=== PATIENT | male | born 1955 | race Caucasian/White ===

== ENCOUNTER 2017-11-30 05:45 | Day surgery (SDC) | payer BC ==
[2017-11-30] MEDS ORDERED: DIPRIVAN 200 MG/20 ML IV ONE (05:46)
[2017-11-30] MEDS ORDERED: Lactated Ringers 1,000 ML IV SCH (06:00)
[2017-11-30 07:40] LABS: ANION GAP 15.8 MEQ/L (5-15); BLOOD UREA NITROGEN 17 mg/dL (9-20); CHLORIDE 102 mmol/L (98-107); Calcium 8.9 mg/dL (8.4-10.2); Carbon Dioxide 25 mmol/L (22-30); Cholesterol 186 mg/dL (50-200); Creatinine 1 0.86 mg/dL (0.66-1.25); Glucose 90 mg/dL (74-106); HDL CHOLESTEROL 50 mg/dL (40-60); Potassium 3.7 mmol/L (3.5-5.1); Risk Ratio 3.7; SGOT/AST 41 U/L (17-59); SODIUM 140 mmol/L (137-145); TRIGLYCERIDE 127 mg/dL (30-150)
[2017-11-30 07:52] LABS: LDL, DIRECT 97 mg/dL (30-100)
[2017-11-30] MEDS ORDERED: Lactated Ringers 1,000 ML IV ONE (08:24)
[2017-11-30 08:58] VITALS: O2SAT 97
[2017-11-30 09:15] VITALS: BP 119/78; PULSE 62
--- NOTE | 2017-11-30 09:49 | OP ---
SURGERY DATE/TIME: 11/30/2017 0757 PREOPERATIVE DIAGNOSIS: Screening exam. POSTOPERATIVE DIAGNOSES: 1) Diverticulosis. 2) Polyps in the ascending and rectosigmoid colon. PROCEDURE: Colonoscopy with polypectomy x2. SURGEON: Dr. Pires. ANESTHESIA: MAC. Medications given by anesthesia department. HISTORY: The patient is a 62 year-old white male patient presenting now for screening colonoscopy. He was appraised of the risks of the procedure including the risk of perforation, phlebitis, untoward reaction to medication, bleeding and missed lesions. The patient verbalized his understanding and desired to have the procedure performed. DESCRIPTION OF PROCEDURE: The patient was given the medications by the anesthesia department. He had continuous pulse oximetry, ECG monitoring, intermittent blood pressure monitoring and tidal CO2 monitoring during the examination. He was placed in the left lateral decubitus position. A digital rectal examination was performed and revealed normal anal sphincter tone, no masses and normal prostate. The flexible Olympus pediatric colonoscope was used to intubate the rectum. A view of the colon was developed sequentially to the cecum. Upon insertion and withdrawal, including a retroflex view in the rectum was noted diverticulosis throughout the colon of moderate sized diverticulum. There was also noted a 0.7 cm size polyp in the ascending colon which was removed using polypectomy snare and retrieved for pathologic evaluation. It was also noted a slightly larger approximately 1 cm polyp in the rectosigmoid area also likewise removed with hot polypectomy snare and retrieved for pathologic evaluation. The scope was removed from the patient who tolerated the procedure well and was sent back to OP recovery in good condition. The prep was noted to be fair to good.
== END 2017-11-30 09:23 | disposition home or self-care (01) ==
LOC: SDC 05:45
PROVIDERS: ATTEND Family Medicine
DX: K63.5 Polyp of colon (principal); K62.1 Rectal polyp; K57.90 Diverticulosis of intestine, part unspecified, without perforation or abscess without bleeding; Z12.11 Encounter for screening for malignant neoplasm of colon; E78.5 Hyperlipidemia, unspecified
CPT/HCPCS: 36415; 80048; 80061; 83721; 84450; 88305; J2704

== ENCOUNTER 2020-12-20 05:55 | Day surgery (SDC) | payer MEDICARE, BC ==
[2020-12-20] MEDS ORDERED: Lactated Ringers 1,000 ML IV SCH (06:30)
[2020-12-20] MEDS ORDERED: DIPRIVAN 200 MG/20 ML IV ONE ×2 (07:27→07:52)
[2020-12-20 08:36] VITALS: PULSE 59; O2SAT 98
[2020-12-20 08:45] VITALS: BP 128/82
--- NOTE | 2020-12-20 11:33 | OP ---
SURGERY DATE: 12/20/2020 SURGERY TIME: 730 PREOPERATIVE DIAGNOSIS: 1. HISTORY OF COLON POLYPS. POSTOPERATIVE DIAGNOSIS: 1. SMALL SIGMOID COLON POLYP. 2. MODERATE TO SEVERE SIGMOID DIVERTICULOSIS. PROCEDURE: 1. Colonoscopy with cold forceps biopsy. SURGEON: Dr. Pires. ANESTHESIA: MAC. Medications given by the Anesthesia Department. BRIEF HISTORY: The patient is a 65 y/o WM patient now presenting for surveillance examination. He had previously had colonoscopy done 3 years ago at which time 3 polyps were removed. The patient was appraised of the risks of the procedure including the risk of perforation, phlebitis, untoward reaction to medication, bleeding, and missed lesions. The patient verbalized his understanding and desired to have the procedure performed. DESCRIPTION OF PROCEDURE: The patient was given the medications by the Anesthesia Department. He had continuous pulse oximetry, ECG monitoring, intermittent BP monitoring, and end tidal CO2 monitoring during the examination. He was placed in the left lateral decubitus position. A digital rectal examination was performed and revealed normal anal sphincter tone, no masses, and a normal prostate. The flexible Olympus pediatric colonoscope was used to intubate the rectum. A view of the colon was developed sequentially to the cecum. Upon insertion and withdrawal, including a retroflex view in the rectum, was noted a small polyp in the sigmoid colon which was biopsied and destroyed one pass of the cold forceps biopsy. There was otherwise noted to be moderate to severe sigmoid diverticulosis. Actually did extend through most of the colon. The scope was removed from the patient who tolerated the procedure well and was sent back to OP recovery in good condition. The prep was noted to be fair to good.
== END 2020-12-20 08:45 | disposition home or self-care (01) ==
LOC: SDC 05:55
PROVIDERS: ATTEND Family Medicine
DX: Z12.11 Encounter for screening for malignant neoplasm of colon (principal); Z86.010 Personal history of colon polyps; K57.30 Diverticulosis of large intestine without perforation or abscess without bleeding; D12.5 Benign neoplasm of sigmoid colon
CPT/HCPCS: 88305; J2704

== ENCOUNTER 2023-11-08 06:05 | Day surgery (SDC) | payer MEDICARE, BC ==
[2023-11-08] MEDS ORDERED: Lactated Ringers 1,000 ML IV ONE (06:15)
[2023-11-08] MEDS: Lactated Ringers 1,000 ML IV SCH (06:20)
[2023-11-08 06:34] VITALS: RESP 18
[2023-11-08] MEDS ORDERED: DIPRIVAN 200 MG/20 ML IV ONE ×2 (07:32→07:53)
[2023-11-08] MEDS ORDERED: Versed 2 MG/2 ML Injection ONE (07:33)
--- NOTE | 2023-11-08 08:36 | OP ---
SURGERY DATE/TIME: 11/08/2023 0733 PREOPERATIVE DIAGNOSES: 1) Screening exam. 2) Personal history of colon polyps. POSTOPERATIVE DIAGNOSIS: Small transverse colon polyp and diverticulitis throughout the colon. PROCEDURE: Colonoscopy with cold forceps biopsy. SURGEON: Dr. Pires. ANESTHESIA: Medications given by anesthesia department. HISTORY: The patient is a 68-year-old white male patient presenting now for screening colonoscopy. He was appraised of the risks of the procedure including the risk of perforation, phlebitis, untoward reaction to medication, bleeding and missed lesions. The patient verbalized his understanding and desired to have the procedure performed. DESCRIPTION OF PROCEDURE: The patient was given the medications by the anesthesia department. He had continuous pulse oximetry, ECG monitoring and intermittent blood pressure monitoring during the examination. He was placed in the left lateral decubitus position. Digital rectal examination was performed and revealed normal anal sphincter tone, no masses and normal prostate. The flexible Olympus pediatric colonoscope was used to intubate the rectum. A view of the colon was developed sequentially to the cecum. Upon insertion and withdrawal it was noted diverticulosis throughout the colon, one small early polyp was seen in the transverse colon this is biopsied and destroyed using passage of cold forceps biopsy instrument. No other mucosal lesions being noted the scope was removed. The patient who tolerated the procedure well and was sent back to OP recovery in good condition. The prep was noted to be poor.
[2023-11-08 08:42] VITALS: BP 130/83; PULSE 55; TEMP 97; O2SAT 97
== END 2023-11-08 08:46 | disposition home or self-care (01) ==
LOC: SDC 06:05
PROVIDERS: ATTEND Family Medicine
DX: Z12.11 Encounter for screening for malignant neoplasm of colon (principal); Z09 Encounter for follow-up examination after completed treatment for conditions other than malignant neoplasm; Z86.010 Personal history of colon polyps; K57.30 Diverticulosis of large intestine without perforation or abscess without bleeding; D12.3 Benign neoplasm of transverse colon
CPT/HCPCS: 93005; J2250; J2704

== ENCOUNTER 2025-04-18 11:12 | Day surgery (SDC) | payer MEDICARE, BC ==
[2025-04-18] MEDS ORDERED: methylPREDNISolone acetate IM ONE (11:13)
[2025-04-18] MEDS ORDERED: LIDOCAINE HCL 1% 50 MG/5 ML VL IJ ONE (11:13)
[2025-04-18] MEDS ORDERED: Sodium Chloride 0.9(Preservative Free) 10 ML IJ ONE (11:13)
[2025-04-18] MEDS ORDERED: propofoL IV ONE (13:46)
--- NOTE | 2025-04-18 15:01 | XRAY ---
Indication: Lumbar RELL. Intraoperative fluoroscopy provided for 34 seconds. 3 digital spot image submitted for interpretation demonstrates posterior needle tip posterior to last lumbar segment. Small amount of contrast injected for needle tip placement. Correlate with intraoperative findings/report.
[2025-04-18] MEDS ORDERED: Lactated Ringers 1,000 ML IV ONE (15:38)
--- NOTE | 2025-04-18 17:09 | XRAY ---
34 seconds of fluoroscopy was used in surgery for a lumbar RELL.
== END 2025-04-18 14:20 | disposition home or self-care (01) ==
LOC: SDC-PAIN 11:12
PROVIDERS: ATTEND Psychiatry & Neurology Pain Medicine
DX: M54.16 Radiculopathy, lumbar region (principal)